=== PATIENT | female | born 1970 | race Caucasian/White ===

== ENCOUNTER 2017-09-23 09:41 | Emergency (ER) | payer MEDICARE, OTHER ==
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
[2017-09-23 10:57] VITALS: BP 189/94
== END 2017-09-23 11:08 | disposition home or self-care (01) ==
LOC: ER 09:41
DX: S63.502A Unspecified sprain of left wrist, initial encounter (principal); S60.222A Contusion of left hand, initial encounter; W10.2XXA Fall (on)(from) incline, initial encounter; Y92.008 Other place in unspecified non-institutional (private) residence as the place of occurrence of the external cause; M19.90 Unspecified osteoarthritis, unspecified site; G89.29 Other chronic pain